=== PATIENT | male | born 1965 | race Caucasian/White ===

== ENCOUNTER 2019-01-06 02:57 | Emergency (ER) | payer OTHER ==
--- NOTE | 2019-01-06 03:07 | ERPHSYRPT ---
- History of Present Illness Time Seen by Provider: 01/06/19 03:06 Historian: patient Exam Limitations: no limitations Physician History: 53 yo with alcoholic cirrhosis presented via [facility] dept for medical clearance as patient is c/o increased abdominal distention with moderate to severe sharp pain generalized which is worsening for the last few days and pain meds are not helping and is supposed to go for paracentesis at [facility] when police got him few hours ago. patient reports having paracentesis few months ago when it was distended. associated with mild sob because of the pressure from the distended abdomen.no nausea or vomiting. no fever or chills. continues to drink alcohol. Quality: dullness, sharpness Abdominal Pain Onset Location: generalized abdomen Pain Radiation: no radiation Severity of Pain-Max: severe Severity of Pain-Current: severe Modifying Factors: Improves With: movement Previous symptoms: same symptoms as today Allergies/Adverse Reactions: No Known Drug Allergies Allergy (Verified 01/06/19 03:21) Home Medications: Clonazepam [Klonopin] 0.5 mg PO BID 01/06/19 [History] Trazodone HCl 100 mg PO DAILY 01/06/19 [History] Hx Tetanus, Diphtheria Vaccination/Date Given: Yes Hx Influenza Vaccination/Date Given: No Hx Pneumococcal Vaccination/Date Given: No - Review of Systems Constitutional: No Symptoms Eyes: No Symptoms Ears, Nose, & Throat: No Symptoms - Past Medical History Pertinent Past Medical History: Yes Cardiac History: Hypertension - Past Surgical History Past Surgical History: Yes Gastrointestinal: Cholecystectomy - Social History Smoking Status: Never smoker Exposure to second hand smoke: No Drug Use: none Patient Lives Alone: No - Nursing Vital Signs Nursing Vital Signs: Initial Vital Signs Temperature 97.4 F 01/06/19 03:06 Pulse Rate 91 H 01/06/19 03:06 Respiratory Rate 18 01/06/19 03:06 Blood Pressure 154/94 01/06/19 03:06 O2 Sat by Pulse Oximetry 98 01/06/19 03:06 Pain Scale Pain Intensity 10 Ordered Tests: Active Orders 24 hr Category Date Time Status IV Insertion STAT Care 01/06/19 03:33 Active ABDOMEN AND PELVIS W CONTRAST [CT] Stat Exams 01/06/19 03:34 Taken AMYLASE Stat Lab 01/06/19 03:56 Completed BLOOD CULTURE Stat Lab 01/06/19 05:55 Received CBC W DIFF Stat Lab 01/06/19 03:56 Completed CMP Stat Lab 01/06/19 03:56 Completed LIPASE Stat Lab 01/06/19 03:56 Completed Occult Blood, Other Screening Stat Lab 01/06/19 04:00 Completed Occult Blood, Other Screening Stat Lab 01/06/19 05:28 Completed PT INR [PROTIME WITH INR] Stat Lab 01/06/19 03:56 Completed UA W/RFX UR CULTURE Stat Lab 01/06/19 04:31 Completed Medication Summary Generic Name Dose Route Start Last Admin Trade Name Freq PRN Reason Stop Dose Admin Sodium Chloride 500 mls @ 500 mls/hr 01/06/19 05:46 01/06/19 05:52 Sodium Chloride 0.9% 500 Ml IV 01/06/19 06:45 500 mls/hr .Q1H ONE Administration Discontinued Medications Generic Name Dose Route Start Last Admin Trade Name Freq PRN Reason Stop Dose Admin Ceftriaxone Sodium/Dextrose 2 g in 50 mls @ 100 mls/hr 01/06/19 05:43 05:51 Rocephin 2 Gm-D5w 50ml Bag IV 01/06/19 06:12 50 mls/hr STAT STA 50 mls/hr Administration Sodium Chloride Confirm 01/06/19 05:47 Sodium Chloride 0.9% 500 Ml Administered 01/06/19 05:48 Dose 500 mls @ ud IV .STK-MED ONE Ceftriaxone Sodium/Dextrose Confirm 01/06/19 05:48 Rocephin 2 Gm-D5w 50ml Bag Administered 01/06/19 05:49 Dose 2 g in 50 mls @ ud IV .STK-MED ONE Morphine Sulfate 4 mg 01/06/19 03:33 01/06/19 03:51 Morphine Sulfate 4 Mg Inj IV 01/06/19 03:34 4 mg STAT ONE Administration Morphine Sulfate Confirm 01/06/19 03:45 Morphine Sulfate 4 Mg Inj Administered 01/06/19 03:46 Dose 4 mg .ROUTE .STK-MED ONE Morphine Sulfate 4 mg 01/06/19 05:30 01/06/19 05:38 Morphine Sulfate 4 Mg Inj IV 01/06/19 05:31 4 mg STAT ONE Administration Morphine Sulfate Confirm 01/06/19 05:36 Morphine Sulfate 4 Mg Inj Administered 01/06/19 05:37 Dose 4 mg .ROUTE .STK-MED ONE Ondansetron HCl 4 mg 01/06/19 03:33 01/06/19 03:52 Zofran 4 Mg/2 Ml Vial IV 01/06/19 03:34 4 mg STAT ONE Administration Ondansetron HCl Confirm 01/06/19 03:44 Zofran 4 Mg/2 Ml Vial Administered 01/06/19 03:45 Dose 4 mg .ROUTE .STK-MED ONE Ondansetron HCl 4 mg 01/06/19 05:30 01/06/19 05:37 Zofran 4 Mg/2 Ml Vial IV 01/06/19 05:31 4 mg STAT ONE Administration Ondansetron HCl Confirm 01/06/19 05:36 Zofran 4 Mg/2 Ml Vial Administered 01/06/19 05:37 Dose 4 mg .ROUTE .STK-MED ONE Pantoprazole Sodium 80 mg 01/06/19 05:42 01/06/19 05:51 Protonix 40 Mg Iv IV 01/06/19 05:43 80 mg STAT ONE Administration Pantoprazole Sodium Confirm 01/06/19 05:48 Protonix 40 Mg Iv Administered 01/06/19 05:49 Dose 40 mg IV .STK-MED ONE Lab/Rad Data: Laboratory Result Diagrams 01/06/19 03:56 01/06/19 03:56 Laboratory Results 01/06/19 01/06/19 01/06/19 Range/Units 05:28 04:31 04:00 WBC (4.0-10.5) K/mm3 RBC (4.1-5.6) M/mm3 Hgb (12.5-18.0) gm/dl Hct (42-50) % MCV (78-100) fl MCH (26-32) pg MCHC (32-36) g/dl RDW (11.5-14.0) % Plt Count (150-450) K/mm3 MPV (6-9.5) fl Gran % (36.0-66.0) % Eos # (Auto) (0-0.5) Absolute Lymphs (auto) (1.0-4.6) Absolute Monos (auto) (0.0-1.3) Lymphocytes % (24.0-44.0) % Monocytes % (0.0-12.0) % Eosinophils % (0.00-5.0) % Basophils % (0.0-0.4) % Absolute Granulocytes (1.4-6.9) Basophils # (0-0.4) PT (8.83-12.87) SECONDS INR (0.8-3.0) Sodium (137-145) mmol/L Potassium (3.5-5.1) mmol/L Chloride (98-107) mmol/L Carbon Dioxide (22-30) mmol/L Anion Gap (5-15) MEQ/L BUN (9-20) mg/dL Creatinine (0.66-1.25) mg/dL Estimated GFR ML/MIN Glucose (74-106) mg/dL Calcium (8.4-10.2) mg/dL Total Bilirubin (0.2-1.3) mg/dL AST (17-59) U/L ALT (0-50) U/L Alkaline Phosphatase (38-126) U/L Serum Total Protein (6.3-8.2) g/dL Albumin (3.5-5.0) g/dL Amylase (30-110) U/L Lipase (23-300) U/L Urine Color YELLOW (YELLOW) Urine Appearance CLEAR (CLEAR) Urine pH 6.0 (5-6) Ur Specific [place] 1.018 (1.005-1.025) Urine Protein NEGATIVE (Negative) Urine Ketones NEGATIVE (NEGATIVE) Urine Blood NEGATIVE (0-5) Estuardo/ul Urine Nitrite NEGATIVE (NEGATIVE) Urine Bilirubin NEGATIVE (NEGATIVE) Urine Urobilinogen 2 (0-1) mg/dL Ur Leukocyte Esterase NEGATIVE (NEGATIVE) Urine WBC (Auto) NONE (0-5) /HPF Urine RBC (Auto) NONE (0-2) /HPF U Epithel Cells (Auto) NONE (FEW) /HPF Urine Bacteria (Auto) NONE (NEGATIVE) /HPF Urine Mucus (Auto) SLIGHT (NEGATIVE) /HPF Urine Culture Reflexed NO (NO) Urine Glucose NEGATIVE (NEGATIVE) mg/dL Stool Occult Blood NEGATIVE NEGATIVE (Negative) 01/06/19 01/06/19 01/06/19 Range/Units 03:56 03:56 03:56 WBC 6.2 (4.0-10.5) K/mm3 RBC 3.10 L (4.1-5.6) M/mm3 Hgb 8.4 L (12.5-18.0) gm/dl Hct 26.4 L (42-50) % MCV 85.2 (78-100) fl MCH 27.0 (26-32) pg MCHC 31.8 L (32-36) g/dl RDW 20.5 H (11.5-14.0) % Plt Count 145 L (150-450) K/mm3 MPV 9.4 (6-9.5) fl Gran % 74.4 H (36.0-66.0) % Eos # (Auto) 0.15 (0-0.5) Absolute Lymphs (auto) 0.78 L (1.0-4.6) Absolute Monos (auto) 0.62 (0.0-1.3) Lymphocytes % 12.6 L (24.0-44.0) % Monocytes % 10.0 (0.0-12.0) % Eosinophils % 2.4 (0.00-5.0) % Basophils % 0.6 (0.0-0.4) % Absolute Granulocytes 4.59 (1.4-6.9) Basophils # 0.04 (0-0.4) PT 18.7 H (8.83-12.87) SECONDS INR 1.64 (0.8-3.0) Sodium 139 (137-145) mmol/L Potassium 3.9 (3.5-5.1) mmol/L Chloride 109 H (98-107) mmol/L Carbon Dioxide 20 L (22-30) mmol/L Anion Gap 14.3 (5-15) MEQ/L BUN 7 L (9-20) mg/dL Creatinine 0.59 L (0.66-1.25) mg/dL Estimated GFR > 60.0 ML/MIN Glucose 99 (74-106) mg/dL Calcium 8.5 (8.4-10.2) mg/dL Total Bilirubin 0.90 (0.2-1.3) mg/dL AST 105 H (17-59) U/L ALT 52 H (0-50) U/L Alkaline Phosphatase 143 H (38-126) U/L Serum Total Protein 8.2 (6.3-8.2) g/dL Albumin 3.1 L (3.5-5.0) g/dL Amylase 113 H (30-110) U/L Lipase 526 H (23-300) U/L Urine Color (YELLOW) Urine Appearance (CLEAR) Urine pH (5-6) Ur Specific [place] (1.005-1.025) Urine Protein (Negative) Urine Ketones (NEGATIVE) Urine Blood (0-5) Estuardo/ul Urine Nitrite (NEGATIVE) Urine Bilirubin (NEGATIVE) Urine Urobilinogen (0-1) mg/dL Ur Leukocyte Esterase (NEGATIVE) Urine WBC (Auto) (0-5) /HPF Urine RBC (Auto) (0-2) /HPF U Epithel Cells (Auto) (FEW) /HPF Urine Bacteria (Auto) (NEGATIVE) /HPF Urine Mucus (Auto) (NEGATIVE) /HPF Urine Culture Reflexed (NO) Urine Glucose (NEGATIVE) mg/dL Stool Occult Blood (Negative) - Progress Progress: pain not gone completely, re-examined Progress Note: 01/06/19 05:46 given multi[ple doses of pain meds but still have quite a bit pain especially on the right side. has normal white count but hemoglobin of 8.3 with negative occult. elevated liver enzyme and pancreatic marker and CT showed extensive portal HTN, with large varices. has diffuse small bowel wall thickening with mesenteric congestion. given protonix and also rocephin to cover for SBP . 01/06/19 06:06 D/W at [facility] and patient is accepted for transfer. 01/06/19 06:28 [facility] called back and recommended transfer to some other facility with GI services as they have now coverage at present and are not sure about covering GI physician today that if he will be able to take care of this patient or not. D/w at [facility] and patient is accepted for transfer. Counseled pt/family regarding: drug and/or alcohol abuse, lab results, diagnosis , need for follow-up, rad results, smoking cessation - Departure Departure Disposition: Transfer Clinical Impression: Abdominal pain Qualifiers: Abdominal location: unspecified location Qualified Code(s): R10.9 - Unspecified abdominal pain Hepatic cirrhosis Qualifiers: Hepatic cirrhosis type: alcoholic cirrhosis Ascites presence: with ascites Qualified Code(s): K70.31 - Alcoholic cirrhosis of liver with ascites Condition: Fair Critical Care Time: No Referrals: GANESH SEWELL MD [NON-STAFF PHY W/O PRIVILEGES] -
[2019-01-06 03:22] VITALS: O2SAT 98
[2019-01-06] MEDS ORDERED: MORPHINE SULFATE 4 MG INJ IV ONE ×2 (03:33→05:30)
[2019-01-06] MEDS ORDERED: Zofran 4 MG/2 ML VIAL IV ONE ×2 (03:33→05:30)
[2019-01-06] MEDS ORDERED: Zofran 4 MG/2 ML VIAL ONE ×2 (03:44→05:36)
[2019-01-06] MEDS ORDERED: MORPHINE SULFATE 4 MG INJ ONE ×2 (03:45→05:36)
[2019-01-06 03:46] LABS: Absolute Neutrophil Ct (ANC) 4.59 (1.4-6.9); BASOPHIL % 0.6 % (0.0-0.4); Basophil (Absolute #) 0.04 (0-0.4); Eosinophil % 2.4 % (0.00-5.0); Eosinophil (Absolute #) 0.15 (0-0.5); Hematocrit 26.4 % (42-50); Hemoglobin 8.4 gm/dl (12.5-18.0); Lymphocyte (Absolute #) 0.78 (1.0-4.6); Lymphocytes % 12.6 % (24.0-44.0); Mean Cell Volume 85.2 fl (78-100); Mean Corpuscular Hgb Concent. 31.8 g/dl (32-36); Mean Platelet Volume 9.4 fl (6-9.5); Monocyte (Absolute #) 0.62 (0.0-1.3); Neutrophil % 74.4 % (36.0-66.0); Platelet Count 145 K/mm3 (150-450); Red Cell Distribution Width 20.5 % (11.5-14.0); White Blood Count 6.2 K/mm3 (4.0-10.5)
[2019-01-06 03:57] LABS: ALBUMIN 3.1 g/dL (3.5-5.0); ALKALINE PHOSPHATASE 143 U/L (38-126); AMYLASE 113 U/L (30-110); ANION GAP 14.3 MEQ/L (5-15); BLOOD UREA NITROGEN 7 mg/dL (9-20); CHLORIDE 109 mmol/L (98-107); Calcium 8.5 mg/dL (8.4-10.2); Carbon Dioxide 20 mmol/L (22-30); Creatinine 1 0.59 mg/dL (0.66-1.25); Glucose 99 mg/dL (74-106); LIPASE 526 U/L (23-300); Potassium 3.9 mmol/L (3.5-5.1); SGOT/AST 105 U/L (17-59); SGPT/ALT 52 U/L (0-50); SODIUM 139 mmol/L (137-145); Total Protein 8.2 g/dL (6.3-8.2)
[2019-01-06 04:33] LABS: INR 1.64 (0.8-3.0); PROTIME 18.7 SECONDS (8.83-12.87)
[2019-01-06 04:35] LABS: Appearance CLEAR (CLEAR); Bilirubin NEGATIVE (NEGATIVE); Blood NEGATIVE Ery/ul (0-5); Glucose NEGATIVE (NEGATIVE); Ketones NEGATIVE (NEGATIVE); Leukocyte Esterase NEGATIVE (NEGATIVE); Mucus SLIGHT /HPF (NEGATIVE); Nitrite NEGATIVE (NEGATIVE); Protein,Urine Dip NEGATIVE (Negative); Specific Gravity 1.018 (1.005-1.025); Urobilinogen 2 mg/dL (0-1)
[2019-01-06] MEDS ORDERED: PROTONIX 40 MG IV IV ONE ×2 (05:42→05:48)
[2019-01-06] MEDS ORDERED: ROCEPHIN 2 Gm-D5w 50ML BAG** 2 G/50 ML IVPB IV STA (05:43)
[2019-01-06] MEDS ORDERED: Sodium Chloride 0.9% 500 ML 500 ML IV ONE ×2 (05:46→05:47)
[2019-01-06] MEDS ORDERED: ROCEPHIN 2 Gm-D5w 50ML BAG** 2 G/50 ML IVPB IV ONE (05:48)
[2019-01-06] MEDS ORDERED: Klonopin 0.5 MG PO ONE (06:37)
[2019-01-06 07:05] VITALS: BP 148/101; PULSE 102
--- NOTE | 2019-01-06 09:05 | XRAY ---
Indication: And abdomen pain, distention, constipation, cirrhosis, ascites, and splenomegaly. Multiple contiguous axial images obtained through the abdomen and pelvis using 80 cc Isovue 370 contrast only. Comparison: April 15, 2016. Lung bases again demonstrates minimal bibasilar dependent atelectasis. No infiltrate or effusion. Heart is not enlarged. Distal esophagus demonstrates varices not well-seen on previous exam. Noncontrasted stomach and bowel loops appear nonobstructed. Normal appendix. There is again mild diffuse scattered colonic fecal debris throughout. New mesenteric edema with small abdomen/tiny pelvic ascites and secondary small bowel thickening. No walled off fluid collection or free air. There remains cirrhosis, 14.7 cm splenomegaly and left upper quadrant/splenorenal varices. Interval enlarging main portal vein today measuring 2.2 cm in diameter. Stable small right renal cortical cyst and cholecystectomy. Remaining pancreas, adrenal glands, kidneys, ureters, and bladder appear unremarkable. There remains mild scattered aortoiliac calcifications. No AAA or pathologic retroperitoneal lymphadenopathy. Osseous structures intact with stable minimal degenerative changes throughout the spine and left femur head avascular necrosis. Impression: 1. Again cirrhotic liver with splenomegaly and multifocal varices. Interval developing secondary findings including mesenteric congestion, bowel wall thickening, enlarging portal vein, and small abdomen/tiny pelvic ascites. 2. Stable right renal cyst and chronic bony findings. Comment: Preliminary interpretation was made by C. No critical discrepancy. CTDI 13.18
== END 2019-01-06 07:58 | disposition short-term general hospital (02) ==
LOC: ED 02:57 → EEVIPCON 02:57 → ED 07:58
DX: R10.9 Unspecified abdominal pain (principal); K70.31 Alcoholic cirrhosis of liver with ascites; I10 Essential (primary) hypertension
CPT/HCPCS: 36415; 74177; 80053; 81001; 82150; 82272; 83690; 85025; 85610; 87040; 96360; 96365; 96374; 96375; 96376; 99285; J0696; J2270; J2405; A9270-GY